=== PATIENT | female | born 1940 | race Caucasian/White ===

== ENCOUNTER 2021-03-02 19:23 | Inpatient (IN) | payer MEDICARE ==
[2021-03-02] MEDS ORDERED: Sodium Chloride 0.9% 10 ML Syringe FLUSH PRN (19:34)
[2021-03-02] MEDS ORDERED: Adenosine 6 MG/2 ML SDV IVPUSH ONE ×2 (19:36)
[2021-03-02] MEDS ORDERED: Diltiazem 25 MG/5 ML SDV IVPUSH ONE (19:38)
--- NOTE | 2021-03-02 19:41 | EDM.PDOC ---
ED HPI GENERAL MEDICAL PROBLEM - General Chief Complaint: Cardiovascular Problem Stated Complaint: IRREGULAR HEARTBEAT Time Seen by Provider: 03/02/21 19:31 Source of Information: Reports: Patient, Family, RN Notes Reviewed History Limitations: Reports: No Limitations - History of Present Illness INITIAL COMMENTS - FREE TEXT/NARRATIVE: 80-year-old female presents emergency department a complaint of palpitations, she states it started yesterday mainly in the night and then has progressed throughout the day has not resolved. She has not had this before. 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: Musculoskeletal History: Reports: Fracture - Infectious Disease History Infectious Disease History: Reports: Chicken Pox, Shingles - Past Surgical History HEENT Surgical History: Reports: Cataract Surgery Female Surgical History: Reports: Hysterectomy, Salpingo-Oophorectomy ED ROS GENERAL - Review of Systems Review Of Systems: See Below Constitutional: Reports: No Symptoms Respiratory: Reports: No Symptoms Cardiovascular: Reports: Palpitations GI/Abdominal: Reports: No Symptoms ED EXAM, GENERAL - Physical Exam Exam: See Below Exam Limited By: No Limitations General Appearance: Alert, WD/WN, No Apparent Distress Respiratory/Chest: No Respiratory Distress, Lungs Clear, Normal Breath Sounds, No Accessory Muscle Use, Chest Non-Tender Cardiovascular: Tachycardia GI/Abdominal: Soft, Non-Tender #1 Interpretation EKG Date: 03/02/21 Time: 19:42 Rhythm: A-Fib [place]: Normal P-Wave: Absent QRS: Normal ST-T: Normal QT: Normal Comparison: NA - No Prior EKG Course - Vital Signs Last Recorded V/S: Last Vital Signs Temp 97.4 F 03/02/21 20:08 Pulse 82 03/02/21 20:22 Resp 12 03/02/21 20:22 BP 118/67 03/02/21 20:22 Pulse Ox 96 03/02/21 20:22 - Orders/Labs/Meds Orders: Active Orders 24 hr Category Date Time Status Cardiac Monitoring [RC] .As Directed Care 03/02/21 19:34 Active EKG Documentation Completion [RC] ASDIRECTED Care 03/02/21 19:36 Active Peripheral IV Care [RC] . DIRECTED Care 03/02/21 19:36 Active Chest 1V Frontal [CR] Stat Exams 03/02/21 19:35 Taken Sodium Chloride 0.9% [Normal Saline] 1,000 ml Med 03/02/21 19:45 Active IV ASDIRECTED Sodium Chloride 0.9% [Saline Flush] Med 03/02/21 19:34 Active 10 ml FLUSH ASDIRECTED PRN ED Antiarrhythmia Med Reflex [OM.PC] Stat Oth 03/02/21 19:34 Ordered Peripheral IV Insertion Adult [OM.PC] Stat Oth 03/02/21 19:34 Ordered EKG 12 Lead [EK] Stat Ther 03/02/21 19:35 Ordered Medication Orders Sodium Chloride (Normal Saline) 1,000 mls @ 125 mls/hr IV ASDIRECTED LESLIE Last Admin: 03/02/21 19:58 Dose: 125 mls/hr Documented by: DIEGO Sodium Chloride (Sodium Chloride 0.9% 10 Ml Syringe) 10 ml FLUSH ASDIRECTED PRN PRN Reason: Keep Vein Open Last Admin: 03/02/21 19:59 Dose: 10 ml Documented by: DIEGO Labs: Laboratory Tests 03/02/21 03/02/21 Range/Units 19:45 19:45 WBC 5.5 (4.5-11.0) K/uL RBC 5.03 (3.30-5.50) M/uL Hgb 14.3 (12.0-15.0) g/dL Hct 44.8 (36.0-48.0) % MCV 89 (80-98) fL MCH 28 (27-31) pg MCHC 32 (32-36) % Plt Count 343 (150-400) K/uL Neut % (Auto) 64.1 (36-66) % Lymph % (Auto) 25.1 (24-44) % [place] % (Auto) 7.4 H (2-6) % Eos % (Auto) 1.8 L (2-4) % Baso % (Auto) 1.6 H (0-1) % Sodium 142 (140-148) mmol/L Potassium 3.2 L (3.6-5.2) mmol/L Chloride 102 (100-108) mmol/L Carbon Dioxide 26 (21-32) mmol/L Anion Gap 17.2 H (5.0-14.0) mmol/L BUN 30 H (7-18) mg/dL Creatinine 1.4 H (0.6-1.0) mg/dL Est Cr Clr Drug Dosing 26.95 mL/min Estimated GFR (MDRD) 36 L (>60) Glucose 122 H (74-106) mg/dL Calcium 9.1 (8.5-10.1) mg/dL Total Bilirubin 0.6 (0.2-1.0) mg/dL AST 26 (15-37) U/L ALT 39 (12-78) U/L Alkaline Phosphatase 89 (46-116) U/L Troponin I < 0.017 (0.000-0.056) ng/mL Total Protein 7.4 (6.4-8.2) g/dL Albumin 3.7 (3.4-5.0) g/dL Globulin 3.7 H (2.3-3.5) g/dL Albumin/Globulin Ratio 1.0 L (1.2-2.2) Meds: Medications Generic Name Dose Route Start Last Admin Trade Name Freq PRN Reason Stop Dose Admin Sodium Chloride 1,000 mls @ 125 mls/hr 03/02/21 19:45 03/02/21 19:58 Normal Saline IV 125 mls/hr ASDIRECTED LESLIE Administration Sodium Chloride 10 ml 03/02/21 19:34 03/02/21 19:59 Sodium Chloride 0.9% 10 Ml Syringe FLUSH 10 ml ASDIRECTED PRN Administration Keep Vein Open Discontinued Medications Generic Name Dose Route Start Last Admin Trade Name Freq PRN Reason Stop Dose Admin Adenosine 6 mg 03/02/21 19:36 Adenosine 6 Mg/2 Ml Sdv IVPUSH 03/02/21 19:37 NOW ONE Adenosine 12 mg 03/02/21 19:36 Adenosine 6 Mg/2 Ml Sdv IVPUSH 03/02/21 19:37 NOW ONE Cyclobenzaprine HCl 10 mg 03/02/21 19:46 Cyclobenzaprine 10 Mg Tab PO 03/02/21 19:47 ONETIME ONE Diltiazem HCl 20 mg 03/02/21 19:38 03/02/21 19:59 Diltiazem 25 Mg/5 Ml Sdv IVPUSH 03/02/21 19:39 20 mg ONETIME ONE Administration Ketorolac Tromethamine 30 mg 03/02/21 19:46 Ketorolac 30 Mg/Ml Sdv IVPUSH 03/02/21 19:47 ONETIME ONE Departure - Departure Time of Disposition: 21:13 Disposition: Refer to Observation Condition: Fair Clinical Impression: Atrial fibrillation with RVR Referrals: Mario Alberto Finley RIGHT OF WAY WORKER [Primary Care Provider] - Forms: ED Department Discharge Sepsis Event Note (ED) - Focused Exam Vital Signs: Vital Signs Temp Pulse Resp BP Pulse Ox 03/02/21 20:22 82 12 118/67 96 03/02/21 20:08 97.4 F 142 H 14 147/93 H 96 03/02/21 19:41 97.4 F 142 H 14 147/93 H 96 - My Orders Last 24 Hours: My Active Orders 03/02/21 19:34 Cardiac Monitoring [RC] .As Directed Sodium Chloride 0.9% [Saline Flush] 10 ml FLUSH ASDIRECTED PRN ED Antiarrhythmia Med Reflex [OM.PC] Stat Peripheral IV Insertion Adult [OM.PC] Stat 03/02/21 19:35 Chest 1V Frontal [CR] Stat EKG 12 Lead [EK] Stat 03/02/21 19:36 EKG Documentation Completion [RC] ASDIRECTED Peripheral IV Care [RC] . DIRECTED 03/02/21 19:45 Sodium Chloride 0.9% [Normal Saline] 1,000 ml IV ASDIRECTED - Assessment/Plan Last 24 Hours: My Active Orders 03/02/21 19:34 Cardiac Monitoring [RC] .As Directed Sodium Chloride 0.9% [Saline Flush] 10 ml FLUSH ASDIRECTED PRN ED Antiarrhythmia Med Reflex [OM.PC] Stat Peripheral IV Insertion Adult [OM.PC] Stat 03/02/21 19:35 Chest 1V Frontal [CR] Stat EKG 12 Lead [EK] Stat 03/02/21 19:36 EKG Documentation Completion [RC] ASDIRECTED Peripheral IV Care [RC] . DIRECTED 03/02/21 19:45 Sodium Chloride 0.9% [Normal Saline] 1,000 ml IV ASDIRECTED Plan: Assessment Acuity = acute Site and laterality = atrial fibrillation with RVR Etiology = unknown Manifestations = none Location of injury = Home Lab values = CBC unremarkable potassium low at 2.2 consistent hypokalemia creatinine elevated 1.4 consistent chronic renal failure stage G3 B troponin was negative initial EKG demonstrates atrial fibrillation there is no ST elevations or depressions after Cardizem bolus the rate did slow down to 80 but remained in atrial fibrillation Plan Call discussed case hospitalist on-call at 2100 kindly agreed to come and evaluate patient emergency department for admission This note was dictated using [employer] voice recognition software please call with any questions on syntax or grammar.
[2021-03-02] MEDS ORDERED: Cyclobenzaprine 10 MG Tab PO ONE (19:46)
[2021-03-02] MEDS ORDERED: Ketorolac 30 MG/ML SDV IVPUSH ONE (19:46)
[2021-03-02] MEDS: Sodium Chloride 0.9% 1,000 ML IV SCH (19:58)
[2021-03-02 21:49] VITALS: PULSE 110
--- NOTE | 2021-03-02 22:08 | PCM.HP.2 ---
H&P History of Present Illness - General Date of Service: 03/02/21 Admit Problem/Dx: Admission Diagnosis/Problem Admission Diagnosis/Problem Atrial fibrillation with rapid ventricular response Source of Information: Patient, Family (Daughter Zeinab), Provider History Limitations: Reports: No Limitations - History of Present Illness Initial Comments - Free Text/Narative: chief complaint- heart palpations This is a 80 year old female presents to ER for evaluation of irregular heart rate. She reports woke up last night at about 3 or 4 am with irregular heart rate. The palpations continue throughout the day. denies any chest pain or shortness of breath or weakness. denies headache. reports the sniffles yesterday, no fever, no chills, no nausea, vomiting or diarrhea. reports painful urination Symptom Onset Date: 03/01/21 Symptom Onset Time: 03:00 Duration of Symptoms: Reports: Hour(s):, Waxing/Waning Location: Reports: Chest Quality: Reports: Other (irregular heart beat) Improves with: Reports: None Worsens with: Reports: None Associated Symptoms: Reports: No Other Symptoms - Related Data Allergies/Adverse Reactions: Allergies Allergy/AdvReac Type Severity Reaction Status Date / Time No Known Allergies Allergy Verified 03/02/21 19:44 Home Medications: Home Meds Metoprolol Succinate [Toprol XL 100mg] 100 mg PO DAILY 09/12/15 [History] Simvastatin [Zocor] 10 mg PO BEDTIME 09/12/15 [History] Chlorthalidone 12.5 mg PO DAILY 03/02/21 [History] Past Medical History HEENT History: Reports: Cataract, Impaired Vision, Other (See Below) Other HEENT History: upper dentures Cardiovascular History: Reports: Arrhythmia, Hypertension Respiratory History: Reports: Sleep Apnea 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 has 3 children. 1 Son , 1 Daughter, 1 Daughter age 6 months.) H&P Review of Systems - Review of Systems: Review Of Systems: See Below General: Reports: Other (neat and well groomed female, pleasant, no concerns at this time.) HEENT: Reports: Glasses Pulmonary: Reports: No Symptoms Cardiovascular: Reports: Palpitations Gastrointestinal: Reports: No Symptoms Genitourinary: Reports: Dysuria (for the past few days. ) Musculoskeletal: Reports: No Symptoms Skin: Reports: No Symptoms Psychiatric: Reports: No Symptoms Neurological: Reports: No Symptoms Hematologic/Lymphatic: Reports: No Symptoms Immunologic: Reports: No Symptoms Exam - Exam Exam: See Below - Vital Signs Vital Signs: Last Vital Signs Temp 97.4 F 03/02/21 20:08 Pulse 110 H 03/02/21 21:48 Resp 8 L 03/02/21 21:48 BP 134/72 03/02/21 21:48 Pulse Ox 96 03/02/21 21:48 Weight: 154 lb 8.705 oz - Exam Quality Assessment: DVT Prophylaxis General: Alert, Oriented, Cooperative, Other (neat and well groomed, pleasant) HEENT: PERRLA, Hearing Intact, Mucosa Moist & Clara, Nares Patent, Normal Nasal Septum, Posterior Pharynx Clear, Conjunctiva Clear, EOMI, EACs Clear, TMs Clear Neck: Supple, Trachea Midline, 2 Lungs: Clear to Auscultation, Normal Respiratory Effort Cardiovascular: Regular Rate, Regular Rhythm GI/Abdominal Exam: Normal Bowel Sounds, Soft, Non-Tender, No Distention, No Abnormal Bruit, No Mass (Female) Exam: Deferred Rectal (Female) Exam: Deferred Back Exam: Normal Inspection, Full Range of Motion, NT Extremities: Normal Inspection, Normal Range of Motion, Non-Tender, No Pedal Edema, Normal Capillary Refill Peripheral Pulses: 2+: Radial (L), Radial (R) Skin: Warm, Dry, Intact Neurological: Cranial Nerves Intact, Reflexes Equal Bilateral, Strength Equal Bilateral, Normal Gait, Normal Speech, Normal Tone Neuro Extensive - Mental Status: Alert, Oriented x3, Normal Mood/Affect, Normal Cognition Neuro Extensive - Motor, Sensory, Reflexes: CN II-XII Intact, Normal Reflexes Psychiatric: Alert, Normal Affect, Normal Mood - Patient Data Lab Results Last 24 hrs: Laboratory Results - last 24 hr 03/02/21 03/02/21 Range/Units 19:45 19:45 WBC 5.5 (4.5-11.0) K/uL RBC 5.03 (3.30-5.50) M/uL Hgb 14.3 (12.0-15.0) g/dL Hct 44.8 (36.0-48.0) % MCV 89 (80-98) fL MCH 28 (27-31) pg MCHC 32 (32-36) % Plt Count 343 (150-400) K/uL Neut % (Auto) 64.1 (36-66) % Lymph % (Auto) 25.1 (24-44) % [place] % (Auto) 7.4 H (2-6) % Eos % (Auto) 1.8 L (2-4) % Baso % (Auto) 1.6 H (0-1) % Sodium 142 (140-148) mmol/L Potassium 3.2 L (3.6-5.2) mmol/L Chloride 102 (100-108) mmol/L Carbon Dioxide 26 (21-32) mmol/L Anion Gap 17.2 H (5.0-14.0) mmol/L BUN 30 H (7-18) mg/dL Creatinine 1.4 H (0.6-1.0) mg/dL Est Cr Clr Drug Dosing 26.95 mL/min Estimated GFR (MDRD) 36 L (>60) Glucose 122 H (74-106) mg/dL Calcium 9.1 (8.5-10.1) mg/dL Total Bilirubin 0.6 (0.2-1.0) mg/dL AST 26 (15-37) U/L ALT 39 (12-78) U/L Alkaline Phosphatase 89 (46-116) U/L Troponin I < 0.017 (0.000-0.056) ng/mL Total Protein 7.4 (6.4-8.2) g/dL Albumin 3.7 (3.4-5.0) g/dL Globulin 3.7 H (2.3-3.5) g/dL Albumin/Globulin Ratio 1.0 L (1.2-2.2) Result Diagrams: 03/02/21 19:45 03/02/21 19:45 Sepsis Event Note - Evaluation Sepsis Screening Result: No Definite Risk - Focused Exam Vital Signs: Vital Signs Temp Pulse Resp BP Pulse Ox 03/02/21 21:48 110 H 8 L 134/72 96 03/02/21 20:22 82 12 118/67 96 03/02/21 20:08 97.4 F 142 H 14 147/93 H 96 03/02/21 19:41 97.4 F 142 H 14 147/93 H 96 - Problem List (1) Atrial fibrillation with RVR SNOMED Code(s): 104193714347405 ICD Code: I48.91 - UNSPECIFIED ATRIAL FIBRILLATION Status: Acute Priority: High Current Visit: Yes (2) Hypertension SNOMED Code(s): 67527523 ICD Code: I10 - ESSENTIAL (PRIMARY) HYPERTENSION Status: Acute Priority: High Current Visit: Yes Qualifiers: Hypertension type: essential hypertension Qualified Code(s): I10 - Essential (primary) hypertension (3) Dysuria SNOMED Code(s): 66245716 ICD Code: R30.0 - DYSURIA Status: Acute Priority: Low Current Visit: Yes (4) Low back pain SNOMED Code(s): 080991726 ICD Code: M54.5 - LOW BACK PAIN Status: Acute Priority: Low Current Visit: No Qualifiers: Back pain laterality: right Sciatica presence: without sciatica Problem List Initiated/Reviewed/Updated: Yes Orders Last 24hrs: Active Orders 24 hr Category Date Time Status Patient Status Manage Transfer [TRANSFER] Routine ADT 03/02/21 21:38 Active Cardiac Monitoring [RC] .As Directed Care 03/02/21 19:34 Active EKG Documentation Completion [RC] ASDIRECTED Care 03/02/21 19:36 Active Peripheral IV Care [RC] . DIRECTED Care 03/02/21 19:36 Active Chest 1V Frontal [CR] Stat Exams 03/02/21 19:35 Taken Sodium Chloride 0.9% [Normal Saline] 1,000 ml Med 03/02/21 19:45 Active IV ASDIRECTED Sodium Chloride 0.9% [Saline Flush] Med 03/02/21 19:34 Active 10 ml FLUSH ASDIRECTED PRN ED Antiarrhythmia Med Reflex [OM.PC] Stat Oth 03/02/21 19:34 Ordered Peripheral IV Insertion Adult [OM.PC] Stat Oth 03/02/21 19:34 Ordered Resuscitation Status Routine Resus Stat 03/02/21 21:41 Ordered EKG 12 Lead [EK] Stat Ther 03/02/21 19:35 Ordered Medication Orders Sodium Chloride (Normal Saline) 1,000 mls @ 125 mls/hr IV ASDIRECTED LESLIE Last Admin: 03/02/21 19:58 Dose: 125 mls/hr Documented by: DIEGO Sodium Chloride (Sodium Chloride 0.9% 10 Ml Syringe) 10 ml FLUSH ASDIRECTED PRN PRN Reason: Keep Vein Open Last Admin: 03/02/21 19:59 Dose: 10 ml Documented by: DIEGO Assessment/Plan Comment:: Assessment/Plan Comment:: Atrial Fib with RVR ASSESSMENT AND PLAN Atrial Fib with RVR- this is a 80 year old lady present to the ER for evaluation of palpations. was found to be in Afib with RVR , rate of 180's, given Adenosine 6 mg at 1936 then Adenosine 12 mg at 1937, then Diltiazem 20 mg IVP, heart rate decreased 80's. Labs cbc normal, chemistries Na+ 142, Potassium 3.2, cl 102, bun 30, creatine 1.4 GFR 36 , urine pending, trop 0.017. Ms. Waller declines any cardioversion because she is scared and not sure does not like procedures or extra medications if not necessary. will plan to admit observation status for overnight monitoring. -Lovenox 30 mg Subcut daily- give first dose tonight -Diltiazem 30 mg every 6 hours -telemetry -oxygen to keep >92% -labs in am CBC, BMP Hypertension -continue outpatient medication -Metoprolol 100 mg XL daily -Zocor 10 mg at bedtime Low back pain -medication ordered as needed Dysuria -urine sample pending MAINTENANCE ISSUES -DVT prophylaxis- Lovenox 30 mg subcut now and in am -GI prophylaxis- Protonix 40 mg daily -Mcginnis catheter; not indicated -Nutrition; consistent regular diet -Nicotine dependence -not required CODE STATUS-FULL CODE ADMISSION STATUS-this patient will be admitted to observation status, expect no more than a one night hospital stay for evaluation and management of problems as outlined above. DISPOSITION-anticipate discharge to home after the hospital stay. PRIMARY CARE PROVIDER-Dr. Damico and CORRINA See HOSPITALIST Dr. Steele - Mortality Measure Prognosis:: Good - Mortality Measure Prognosis:: Good
[2021-03-02] MEDS ORDERED: Ondansetron 4 MG/2 ML SDV IV PRN (22:31)
[2021-03-02] MEDS ORDERED: Acetaminophen 325 MG Tab PO PRN (22:31)
[2021-03-02] MEDS ORDERED: Albuterol 0.083% 2.5 MG/3 ML Neb Soln NEB PRN (22:31)
[2021-03-02] MEDS ORDERED: Pravastatin 20 MG Tab PO SCH (22:31)
[2021-03-02] MEDS ORDERED: Docusate Sodium 100 MG Cap PO PRN (22:31)
[2021-03-02] MEDS ORDERED: Enoxaparin 30 MG/0.3 ML Syringe SUBCUT SCH (22:31)
[2021-03-02] MEDS ORDERED: oxyCODONE 5 MG Tab PO PRN (22:31)
[2021-03-02] MEDS ORDERED: Ondansetron 4 MG Tab.DIS PO PRN (22:31)
[2021-03-02] MEDS ORDERED: Sodium Chloride 0.9% 1,000 ML IV SCH (22:31)
[2021-03-02] MEDS ORDERED: Bisacodyl 5 MG Tab PO PRN (22:31)
[2021-03-02] MEDS ORDERED: Morphine 2 MG/ML SYRINGE IVPUSH PRN (22:31)
[2021-03-03] MEDS ORDERED: Melatonin 3 MG Tab PO PRN ×2 (01:47→08:00)
[2021-03-03] MEDS: Diltiazem IR 30 MG Tab PO SCH ×2 (02:07→07:55)
[2021-03-03] MEDS: Sodium Chloride 0.9% 1,000 ML IV SCH (03:25)
[2021-03-03 08:07] VITALS: BP 116/67
[2021-03-03] MEDS ORDERED: Potassium Chloride 20 MEQ Tab.ER PO ONE (08:30)
[2021-03-03] MEDS ORDERED: Metoprolol Succinate 50 MG Tab.ER PO SCH (09:00)
[2021-03-03] MEDS ORDERED: Chlorthalidone 25 MG Tab PO SCH (09:00)
--- NOTE | 2021-03-03 10:13 | PCM.DCSUM1 ---
Discharge Summary - Hospital Course Brief History: 80-year-old female with history of paroxysmal atrial fibrillation and essential hypertension who presented with palpitations and weakness. She was admitted for management of atrial fibrillation with a rapid ventricular response. Diagnosis: Stroke: No - Discharge Data Discharge Date: 03/03/21 Discharge Disposition: Home, Self-Care 01 Condition: Good - Referral to Home Health Primary Care Physician: Mario Alberto Finley NP - Discharge Diagnosis/Problem(s) (1) Atrial fibrillation with RVR SNOMED Code(s): 679305089557002 ICD Code: I48.91 - UNSPECIFIED ATRIAL FIBRILLATION Status: Acute Priority: High Current Visit: Yes (2) Hypokalemia due to excessive renal loss of potassium SNOMED Code(s): 27155286 ICD Code: E87.6 - HYPOKALEMIA Status: Acute Current Visit: Yes (3) CKD (chronic kidney disease) stage 3, GFR 30-59 ml/min SNOMED Code(s): 300198325 ICD Code: N18.30 - CHRONIC KIDNEY DISEASE, STAGE 3 UNSPECIFIED Status: Chronic Current Visit: No Qualifiers: Chronic kidney disease stage 3 subtype: stage 3a (GFR 45-59) Qualified Code(s): N18.31 - Chronic kidney disease, stage 3a (4) Essential hypertension SNOMED Code(s): 21599011 ICD Code: I10 - ESSENTIAL (PRIMARY) HYPERTENSION Status: Chronic Current Visit: No - Patient Summary/Data Hospital Course: Maryellen presented to the emergency room with palpitations and weakness. Work-up in the emergency room revealed atrial fibrillation with rapid ventricular response. Initial heart rates were in the 130-140 range. She received a 15 mg bolus of IV diltiazem and her heart rate slowed down to the 80s but she remained in atrial fibrillation. Laboratory studies were remarkable for a creatinine of 1.4 as well as a potassium of 3.1. There is no evidence for infection on urinalysis. Chest x-ray did not suggest infection. The patient was admitted to the hospital for management of paroxysmal atrial fibrillation. She received oral diltiazem overnight and fortunately she converted to a sinus rhythm. She did receive some IV fluids overnight and her creatinine has improved to 1.1. She has remained in sinus rhythm following conversion earlier this morning. She is feeling much better with some fluids as well as conversion to sinus rhythm. I suspect that her chlorthalidone led to dehydration with a mild elevation in her creatinine as well as the hypokalemia. She reports some orthostatic type symptoms that have been present for some time and I am concerned these could be related to the chlorthalidone. Our plan is to stop the chlorthalidone. We will be starting a low-dose of diltiazem in its place to help with blood pressure control as well as the now resolved atrial fibrillation. We did discuss anticoagulation but given the very short episode at this point we can hold off on any systemic anticoagulation. If she has additional episodes we may need to consider this. She feels well enough to go home at this point and is stable and safe for discharge. She will be following up with her primary care in 1 to 2 weeks for blood pressure recheck. - Patient Instructions Diet: Regular Diet as Tolerated Activity: As Tolerated Showering/Bathing: May Shower Other/Special Instructions: You were in the hospital for observation and management of atrial fibrillation with rapid ventricular response. Your heart rhythm is now back to a normal sinus rhythm after using oral diltiazem overnight. I suspect that the episode of atrial fibrillation was caused by low potassium. I believe if you had become mildly dehydrated because of the chlorthalidone. I suspect that the low potassium was also a result of the chlorthalidone. I recommend that you STOP taking the chlorthalidone. To help with blood pressure and also your heart rhythm I recommend you start diltiazem 120 [address] daily [address] of the chlorthalidone. You should follow-up with your primary care provider to recheck your blood pressure in 1 to 2 weeks. Please seek medical attention if you develop significant palpitations, weakness that impairs your ability to perform your activities of daily living, if you have chest pain/pressure or significant shortness of breath. - Discharge Plan *PRESCRIPTION DRUG MONITORING PROGRAM REVIEWED*: Not Applicable *COPY OF PRESCRIPTION DRUG MONITORING REPORT IN PATIENT NARA: Not Applicable Prescriptions/Med Rec: dilTIAZem HCL [Diltiazem 24Hr ER] 120 mg PO DAILY #90 cap.sa.24h Home Medications: Home Meds Metoprolol Succinate [Toprol XL 100mg] 100 mg PO DAILY 09/12/15 [History] Simvastatin [Zocor] 10 mg PO BEDTIME 09/12/15 [History] dilTIAZem HCL [Diltiazem 24Hr ER] 120 mg PO DAILY #90 cap.sa.24h 03/03/21 [Rx] Oxygen Therapy Mode: Room Air Patient Handouts: Atrial Fibrillation, Diltiazem Extended-Release Oral Capsules or Tablets Referrals: Mario Alberto Finley NP [Primary Care Provider] - (1-2 weeks -follow-up hospital stay for atrial fibrillation and recheck blood pressure) - Discharge Summary/Plan Comment DC Time >30 min.: No - Patient Data Vitals - Most Recent: Last Vital Signs Temp 36.2 C 03/03/21 08:00 Pulse 110 H 03/02/21 21:48 Resp 15 03/03/21 08:00 BP 116/67 03/03/21 08:00 Pulse Ox 94 L 03/03/21 08:00 Weight - Most Recent: 70.806 kg Lab Results - Last 24 hrs: Laboratory Results - last 24 hr 03/02/21 03/02/21 03/02/21 Range/Units 19:45 19:45 22:31 WBC 5.5 (4.5-11.0) K/uL RBC 5.03 (3.30-5.50) M/uL Hgb 14.3 (12.0-15.0) g/dL Hct 44.8 (36.0-48.0) % MCV 89 (80-98) fL MCH 28 (27-31) pg MCHC 32 (32-36) % Plt Count 343 (150-400) K/uL Neut % (Auto) 64.1 (36-66) % Lymph % (Auto) 25.1 (24-44) % [place] % (Auto) 7.4 H (2-6) % Eos % (Auto) 1.8 L (2-4) % Baso % (Auto) 1.6 H (0-1) % Sodium 142 (140-148) mmol/L Potassium 3.2 L (3.6-5.2) mmol/L Chloride 102 (100-108) mmol/L Carbon Dioxide 26 (21-32) mmol/L Anion Gap 17.2 H (5.0-14.0) mmol/L BUN 30 H (7-18) mg/dL Creatinine 1.4 H (0.6-1.0) mg/dL Est Cr Clr Drug Dosing 26.95 mL/min Estimated GFR (MDRD) 36 L (>60) Glucose 122 H (74-106) mg/dL Calcium 9.1 (8.5-10.1) mg/dL Total Bilirubin 0.6 (0.2-1.0) mg/dL AST 26 (15-37) U/L ALT 39 (12-78) U/L Alkaline Phosphatase 89 (46-116) U/L Troponin I < 0.017 (0.000-0.056) ng/mL Total Protein 7.4 (6.4-8.2) g/dL Albumin 3.7 (3.4-5.0) g/dL Globulin 3.7 H (2.3-3.5) g/dL Albumin/Globulin Ratio 1.0 L (1.2-2.2) Urine Color Yellow (YELLOW) Urine Appearance Clear (CLEAR) Urine pH 5.0 (5.0-8.0) Ur Specific [place] 1.010 (1.008-1.030) Urine Protein Negative (NEGATIVE) mg/dL Urine Glucose (UA) Negative (NEGATIVE) mg/dL Urine Ketones Negative (NEGATIVE) mg/dL Urine Occult Blood Small H (NEGATIVE) Urine Nitrite Negative (NEGATIVE) Urine Bilirubin Negative (NEGATIVE) Urine Urobilinogen 0.2 (0.2-1.0) EU/dL Ur Leukocyte Esterase Moderate H (NEGATIVE) Urine RBC 0-5 (0-5) Urine WBC 5-10 H (0-5) Ur Epithelial Cells Rare Amorphous Sediment Few Urine Bacteria Few Urine Mucus Not seen 03/03/21 03/03/21 03/03/21 Range/Units 05:30 05:30 05:30 WBC 5.6 (4.5-11.0) K/uL RBC 4.74 (3.30-5.50) M/uL Hgb 13.6 (12.0-15.0) g/dL Hct 42.6 (36.0-48.0) % MCV 90 (80-98) fL MCH 29 (27-31) pg MCHC 32 (32-36) % Plt Count 286 (150-400) K/uL Neut % (Auto) 68.4 H (36-66) % Lymph % (Auto) 20.2 L (24-44) % [place] % (Auto) 7.5 H (2-6) % Eos % (Auto) 2.5 (2-4) % Baso % (Auto) 1.4 H (0-1) % Sodium 146 (140-148) mmol/L Potassium 3.3 L (3.6-5.2) mmol/L Chloride 108 (100-108) mmol/L Carbon Dioxide 26 (21-32) mmol/L Anion Gap 15.3 H (5.0-14.0) mmol/L BUN 22 H (7-18) mg/dL Creatinine 1.1 H (0.6-1.0) mg/dL Est Cr Clr Drug Dosing 34.30 mL/min Estimated GFR (MDRD) 48 L (>60) Glucose 114 H (74-106) mg/dL Calcium 8.6 (8.5-10.1) mg/dL Total Bilirubin (0.2-1.0) mg/dL AST (15-37) U/L ALT (12-78) U/L Alkaline Phosphatase (46-116) U/L Troponin I < 0.017 (0.000-0.056) ng/mL Total Protein (6.4-8.2) g/dL Albumin (3.4-5.0) g/dL Globulin (2.3-3.5) g/dL Albumin/Globulin Ratio (1.2-2.2) Urine Color (YELLOW) Urine Appearance (CLEAR) Urine pH (5.0-8.0) Ur Specific [place] (1.008-1.030) Urine Protein (NEGATIVE) mg/dL Urine Glucose (UA) (NEGATIVE) mg/dL Urine Ketones (NEGATIVE) mg/dL Urine Occult Blood (NEGATIVE) Urine Nitrite (NEGATIVE) Urine Bilirubin (NEGATIVE) Urine Urobilinogen (0.2-1.0) EU/dL Ur Leukocyte Esterase (NEGATIVE) Urine RBC (0-5) Urine WBC (0-5) Ur Epithelial Cells Amorphous Sediment Urine Bacteria Urine Mucus Med Orders - Current: Current Medications Acetaminophen (Acetaminophen 325 Mg Tab) 650 mg PO Q4H PRN PRN Reason: Pain (Mild 1-3)/fever Last Admin: 03/03/21 04:28 Dose: 650 mg Documented by: Albuterol (Albuterol 0.083% 2.5 Mg/3 Ml Neb Soln) 2.5 mg NEB Q4H PRN PRN Reason: Shortness Of Breath/wheezing Bisacodyl (Bisacodyl 5 Mg Tab) 5 mg PO DAILY PRN PRN Reason: Constipation Chlorthalidone (Chlorthalidone 25 Mg Tab) 12.5 mg PO DAILY [facility] Diltiazem HCl (Diltiazem Ir 30 Mg Tab) 30 mg PO Q6H [facility] Last Admin: 03/03/21 07:55 Dose: 30 mg Documented by: Docusate Sodium (Docusate Sodium 100 Mg Cap) 100 mg PO BID PRN PRN Reason: Constipation Enoxaparin Sodium (Enoxaparin 30 Mg/0.3 Ml Syringe) 30 mg SUBCUT BEDTIME [facility] Melatonin (Melatonin 3 Mg Tab) 3 mg PO BEDTIME PRN PRN Reason: Sleep Metoprolol Succinate (Metoprolol Succinate 50 Mg Tab.Er) 100 mg PO DAILY [facility] Morphine Sulfate (Morphine 2 Mg/Ml Syringe) 2 mg IVPUSH Q2H PRN PRN Reason: Pain (severe 7-10) Ondansetron HCl (Ondansetron 4 Mg Tab.Dis) 4 mg PO Q6H PRN PRN Reason: Nausea able to take PO Ondansetron HCl (Ondansetron 4 Mg/2 Ml Sdv) 4 mg IV Q4H PRN PRN Reason: Nausea/Vomiting Oxycodone HCl (Oxycodone 5 Mg Tab) 5 mg PO Q4H PRN PRN Reason: Pain (moderate 4-6) Pantoprazole Sodium (Pantoprazole 40 Mg Tab.Cr) 40 mg PO BEDTIME [facility] Pravastatin Sodium (Pravastatin 20 Mg Tab) 10 mg PO BEDTIME [facility] Last Admin: 03/03/21 02:07 Dose: Not Given Documented by: Sodium Chloride (Sodium Chloride 0.9% 10 Ml Syringe) 10 ml FLUSH ASDIRECTED PRN PRN Reason: Keep Vein Open Last Admin: 03/02/21 19:59 Dose: 10 ml Documented by: Discontinued Medications Adenosine (Adenosine 6 Mg/2 Ml Sdv) 6 mg IVPUSH NOW ONE Stop: 03/02/21 19:37 Last Admin: 03/02/21 22:33 Dose: Not Given Documented by: Adenosine (Adenosine 6 Mg/2 Ml Sdv) 12 mg IVPUSH NOW ONE Stop: 03/02/21 19:37 Last Admin: 03/02/21 22:33 Dose: Not Given Documented by: Cyclobenzaprine HCl (Cyclobenzaprine 10 Mg Tab) 10 mg PO ONETIME ONE Stop: 03/02/21 19:47 Diltiazem HCl (Diltiazem 25 Mg/5 Ml Sdv) 20 mg IVPUSH ONETIME ONE Stop: 03/02/21 19:39 Last Admin: 03/02/21 19:59 Dose: 20 mg Documented by: Enoxaparin Sodium (Enoxaparin 30 Mg/0.3 Ml Syringe) 30 mg SUBCUT DAILY [facility] Last Admin: 03/03/21 02:07 Dose: 30 mg Documented by: Sodium Chloride (Normal Saline) 1,000 mls @ 125 mls/hr IV ASDIRECTED [facility] Last Admin: 03/03/21 03:25 Dose: 125 mls/hr Documented by: Sodium Chloride (Normal Saline) 1,000 mls @ 125 mls/hr IV ASDIRECTED [facility] Ketorolac Tromethamine (Ketorolac 30 Mg/Ml Sdv) 30 mg IVPUSH ONETIME ONE Stop: 03/02/21 19:47 Melatonin (Melatonin 3 Mg Tab) 3 mg PO BEDTIME [facility] Melatonin (Melatonin 3 Mg Tab) 3 mg PO DAILY PRN PRN Reason: Sleep Potassium Chloride (Potassium Chloride 20 Meq Tab.Er) 40 meq PO ONETIME ONE Stop: 03/03/21 08:31 Last Admin: 03/03/21 08:44 Dose: 40 meq Documented by:
--- NOTE | 2021-03-03 13:02 | CR ---
CHEST: Portable 03/02/2021 at 8:28 PM CLINICAL HISTORY:Chest pain COMPARISON:CT January 2021 FINDINGS: Heart and pulmonary vascularity are normal. There are atherosclerotic changes in the aorta. There is slight pleural plaque in the left chest. 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
[2021-03-03] MEDS ORDERED: Pantoprazole 40 MG Tab.CR PO SCH (21:00)
[2021-03-03] MEDS ORDERED: Melatonin 3 MG Tab PO SCH (21:00)
[2021-03-03] MEDS ORDERED: Enoxaparin 30 MG/0.3 ML Syringe SUBCUT SCH (21:00)
== END 2021-03-03 11:19 | disposition home or self-care (01) | DRG 310 ==
LOC: JP.ED 19:23 → JP.ICU 21:38
PROVIDERS: ADMIT Internal Medicine; ATTEND Internal Medicine
DX: I48.91 Unspecified atrial fibrillation (principal); I48.0 Paroxysmal atrial fibrillation; I10 Essential (primary) hypertension; E87.6 Hypokalemia; I12.9 Hypertensive chronic kidney disease with stage 1 through stage 4 chronic kidney disease, or unspecified chronic kidney disease; N18.31 Chronic kidney disease, stage 3a; E86.0 Dehydration; H54.7 Unspecified visual loss; M54.5 Low back pain; R30.0 Dysuria; G47.30 Sleep apnea, unspecified; Z98.49 Cataract extraction status, unspecified eye; Z79.899 Other long term (current) drug therapy; Z90.710 Acquired absence of both cervix and uterus
CPT/HCPCS: 36415; 71045 ×2; 80053; 84484; 85025; 93005; J3490; J7030; 80048; 81001; 87086; 96374; 99285-25; A9270-GY; J1650

== ENCOUNTER 2021-03-29 18:26 | Emergency (ER) | payer MEDICARE ==
--- NOTE | 2021-03-29 19:15 | EDM.PDOC ---
ED HPI GENERAL MEDICAL PROBLEM - General Chief Complaint: Cardiovascular Problem Stated Complaint: AFIB, HEART FLUTTERING Time Seen by Provider: 03/29/21 18:57 Source of Information: Reports: Patient History Limitations: Reports: No Limitations - History of Present Illness INITIAL COMMENTS - FREE TEXT/NARRATIVE: Maryellen is a 80-year-old female presenting to the ED for paroxysmal atrial fibrillation/flutter and elevated blood pressure evaluation. The patient was recently hospitalized at the beginning of the month in the ICU for acute onset of atrial flutter and congestive heart failure. She was aggressively diuresed and started on diltiazem and metoprolol. She developed some hypokalemia due to the diuretic. As a result, she stopped taking the diuretic and has had increa sing blood pressure and peripheral edema since discharge. She did see her primary doctor Dr. Damico for her hospitalization follow-up who wanted to double her diltiazem, however, the patient has not done this and now her blood pressures have been running in the 170s to 180s over the 70s to 90s. The patient has noticed increased peripheral edema with swelling of both legs. She does not measure her weight daily so is unaware of any weight gain, however, her girth has increased according to her son-in-law. The patient appears to be somewhat resistant to medication management which is likely resulting in her going in and out of atrial flutter and certainly contributing to congestive heart failure with peripheral edema. She denies any shortness of breath or chest pain. He has had a normal appetite. She denies any nausea, vomiting, or diarrhea. There is been no abdominal or back pain. She denies any urinary symptoms. - Related Data Allergies Allergy/AdvReac Type Severity Reaction Status Date / Time No Known Allergies Allergy Verified 03/02/21 19:44 Home Meds: Home Meds Metoprolol Succinate [Toprol XL 100mg] 100 mg PO DAILY 09/12/15 [History] Simvastatin [Zocor] 10 mg PO BEDTIME 09/12/15 [History] dilTIAZem HCL [Diltiazem 24Hr ER] 120 mg PO DAILY #90 cap.sa.24h 03/03/21 [Rx] Furosemide [Lasix] 20 mg PO QAM #30 tab 03/29/21 [Rx] Metoprolol Tartrate 100 mg PO BID #60 tablet 03/29/21 [Rx] Past Medical History HEENT History: Reports: Cataract, Impaired Vision, Other (See Below) Other HEENT History: upper dentures Cardiovascular History: Reports: Arrhythmia, Hypertension Respiratory History: Reports: Sleep Apnea 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 has 3 children. 1 Son , 1 Daughter, 1 Daughter age 6 months.) ED ROS GENERAL - Review of Systems Review Of Systems: See Below Constitutional: Reports: No Symptoms HEENT: Reports: No Symptoms Respiratory: Reports: No Symptoms Cardiovascular: Reports: Blood Pressure Problem, Edema, Palpitations Endocrine: Reports: No Symptoms GI/Abdominal: Reports: No Symptoms : Reports: No Symptoms Musculoskeletal: Reports: No Symptoms Skin: Reports: No Symptoms Neurological: Reports: No Symptoms Psychiatric: Reports: No Symptoms Hematologic/Lymphatic: Reports: No Symptoms Immunologic: Reports: No Symptoms ED EXAM, GENERAL - Physical Exam Exam: See Below Exam Limited By: No Limitations General Appearance: Alert, No Apparent Distress Eye Exam: Bilateral Eye: EOMI, PERRL Throat/Mouth: Normal Inspection, Normal Oropharynx, Normal Voice, No Airway Compromise Head: Atraumatic, Normocephalic Neck: Normal Inspection, Supple, Non-Tender, Full Range of Motion Respiratory/Chest: No Respiratory Distress, Lungs Clear, Normal Breath Sounds. No: Rales, Rhonchi, Wheezing Cardiovascular: Normal Peripheral Pulses, Regular Rate, Rhythm, No Murmur Peripheral Pulses: 2+: Radial (L), Radial (R), Posterior Tibial (L), Posterior Tibial (R) GI/Abdominal: Normal Bowel Sounds, Soft, Non-Tender Back Exam: Normal Inspection Extremities: Normal Range of Motion, Normal Capillary Refill, Pedal Edema (Bilateral 1+ edema lower calfs and ankles.) Neurological: Alert, Oriented, Normal Cognition, No Motor/Sensory Deficits Psychiatric: Normal Affect, Normal Mood Skin Exam: Warm, Dry, Intact, Normal Color Lymphatic: No Adenopathy #1 Interpretation EKG Date: 03/29/21 Time: 19:04 Rhythm: NSR Rate (Beats/Min): 77 [place]: Normal P-Wave: Present QRS: Normal (Nonspecific intraventricular conduction delay.) ST-T: Normal QT: Normal Comparison: No Change (No change in EKG when compared to previous on 03/02/2021) Course - Vital Signs Last Recorded V/S: Last Vital Signs Temp 36.4 C 03/29/21 19:04 Pulse 73 03/29/21 21:10 Resp 13 03/29/21 21:27 BP 187/93 H 03/29/21 21:27 Pulse Ox 95 03/29/21 21:27 - Orders/Labs/Meds Orders: Active Orders 24 hr Category Date Time Status EKG Documentation Completion [RC] ASDIRECTED Care 03/29/21 18:58 Active Chest 1V Frontal [CR] Stat Exams 03/29/21 18:58 Taken EKG 12 Lead [EK] Routine Ther 03/29/21 18:58 Ordered Labs: Laboratory Tests 03/29/21 03/29/21 03/29/21 Range/Units 19:15 19:23 19:23 WBC 5.2 (4.5-11.0) K/uL RBC 4.65 (3.30-5.50) M/uL Hgb 13.5 (12.0-15.0) g/dL Hct 42.5 (36.0-48.0) % MCV 91 (80-98) fL MCH 29 (27-31) pg MCHC 32 (32-36) % Plt Count 274 (150-400) K/uL Neut % (Auto) 64.3 (36-66) % Lymph % (Auto) 24.5 (24-44) % [place] % (Auto) 6.3 H (2-6) % Eos % (Auto) 3.8 (2-4) % Baso % (Auto) 1.1 H (0-1) % PT 10.3 (9.5-12.0) sec INR 0.94 (0.80-1.20) APTT 24.2 L (27.0-36.0) sec Sodium (140-148) mmol/L Potassium (3.6-5.2) mmol/L Chloride (100-108) mmol/L Carbon Dioxide (21-32) mmol/L Anion Gap (5.0-14.0) mmol/L BUN (7-18) mg/dL Creatinine (0.6-1.0) mg/dL Est Cr Clr Drug Dosing mL/min Estimated GFR (MDRD) (>60) Glucose (74-106) mg/dL Calcium (8.5-10.1) mg/dL Total Bilirubin (0.2-1.0) mg/dL AST (15-37) U/L ALT (12-78) U/L Alkaline Phosphatase (46-116) U/L NT-Pro-B Natriuret Pep (5-450) pg/mL Total Protein (6.4-8.2) g/dL Albumin (3.4-5.0) g/dL Globulin (2.3-3.5) g/dL Albumin/Globulin Ratio (1.2-2.2) Free T4 1.04 (0.76-1.46) ng/dL TSH, Ultra Sensitive (0.358-3.740) uIU/mL 03/29/21 Range/Units 19:23 WBC (4.5-11.0) K/uL RBC (3.30-5.50) M/uL Hgb (12.0-15.0) g/dL Hct (36.0-48.0) % MCV (80-98) fL MCH (27-31) pg MCHC (32-36) % Plt Count (150-400) K/uL Neut % (Auto) (36-66) % Lymph % (Auto) (24-44) % [place] % (Auto) (2-6) % Eos % (Auto) (2-4) % Baso % (Auto) (0-1) % PT (9.5-12.0) sec INR (0.80-1.20) APTT (27.0-36.0) sec Sodium 142 (140-148) mmol/L Potassium 3.9 (3.6-5.2) mmol/L Chloride 105 (100-108) mmol/L Carbon Dioxide 28 (21-32) mmol/L Anion Gap 8.8 (5.0-14.0) mmol/L BUN 22 H (7-18) mg/dL Creatinine 1.4 H (0.6-1.0) mg/dL Est Cr Clr Drug Dosing 26.95 mL/min Estimated GFR (MDRD) 36 L (>60) Glucose 104 (74-106) mg/dL Calcium 9.0 (8.5-10.1) mg/dL Total Bilirubin 0.5 (0.2-1.0) mg/dL AST 23 (15-37) U/L ALT 41 (12-78) U/L Alkaline Phosphatase 101 (46-116) U/L NT-Pro-B Natriuret Pep 192 (5-450) pg/mL Total Protein 7.1 (6.4-8.2) g/dL Albumin 3.6 (3.4-5.0) g/dL Globulin 3.5 (2.3-3.5) g/dL Albumin/Globulin Ratio 1.0 L (1.2-2.2) Free T4 (0.76-1.46) ng/dL TSH, Ultra Sensitive 4.071 H (0.358-3.740) uIU/mL - Re-Assessments/Exams Free Text/Narrative Re-Assessment/Exam: 03/29/21 21:44 I reviewed the patient's EKG demonstrating normal sinus rhythm at a rate of 77 bpm. She does have evidence for left atrial enlargement. Everything else appears to be normal. The patient had a portable 1 view chest x-ray which also appears to be normal. Labs were obtained showing a normal CBC, comprehensive metabolic panel except for a creatinine 1.4. Her TSH is elevated at 4.07 with a normal free T4 suggesting sick euthyroid. Patient's brain natruretic peptide is normal at 192. On exam, she has 1+ edema suggesting retention of fluid. She is in sinus rhythm but is having episodes of paroxysmal atrial flutter or fibrillation. She does saw her primary care provider who wanted to increase her diltiazem XR to 240 mg daily. She has been reluctant to do this because she does not understand the need for it. We spent 20 minutes going over her medications and how each medication works with her body. She had previously been on chlorthalidone, however, discontinued it because of hypokalemia. She has not been taking any water pill for the last 3 weeks contributing to her fluid retention and elevated blood pressure. She has agreed to increase her diltiazem XR to 240 mg daily. I reviewed her chart and saw that she had a previous reaction to hydrochlorothiazide so we will put her on low-dose Lasix 20 mg every morning. 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 I did discuss the case with Dr. Damico who would like to see her in follow-up. This was discussed with the patient. At this time, the patient is suitable for discharge home in satisfactory condition. Indications to return to the ED were discussed prior to discharge. Departure - Departure Time of Disposition: 21:48 Disposition: Home, Self-Care 01 Clinical Impression: Paroxysmal atrial flutter, Essential hypertension, Peripheral edema CKD (chronic kidney disease) stage 3, GFR 30-59 ml/min Qualifiers: Chronic kidney disease stage 3 subtype: stage 3a (GFR 45-59) Qualified Code(s): N18.31 - Chronic kidney disease, stage 3a Prescriptions: Furosemide [Lasix] 20 mg PO QAM #30 tab Metoprolol Tartrate 100 mg PO BID #60 tablet Referrals: Mario Alberto Finley, [employer] [Primary Care Provider] - Forms: ED Department Discharge Care Plan Goals: I would like you to increase your diltiazem XR to 240 mg daily as discussed in our cessation. We are also adding Lasix 20 mg every morning to get the extra fluid off. I had like you to weigh yourself once a day preferably when you get up in the morning at the same time to observe for any fluid retention. Please let your doctor know if you have more than an 8 pound weight gain over the period of a week to 2 which could indicate significant fluid retention. Dr. Damico would like to see you in follow-up within the next 1 to 2 weeks. I have also included a prescription for metoprolol tartrate 100 mg twice daily to replace your metoprolol succinate that you are currently on. Return to the emergency room for reevaluation should you develop a rapid heartbeat, lightheadedness, chest pain or shortness of breath, nausea or vomiting. It was a pleasure meeting with you. Sepsis Event Note (ED) - Evaluation Sepsis Screening Result: No Definite Risk - Focused Exam Vital Signs: Vital Signs Temp Pulse Resp BP Pulse Ox 03/29/21 21:27 13 187/93 H 95 03/29/21 21:10 73 14 169/87 H 98 03/29/21 19:04 36.4 C 79 20 185/83 H 95 03/29/21 18:57 36.4 C 79 20 185/83 H 95 - Problem List & Annotations (1) CKD (chronic kidney disease) stage 3, GFR 30-59 ml/min SNOMED Code(s): 575820954 Code(s): N18.30 - CHRONIC KIDNEY DISEASE, STAGE 3 UNSPECIFIED Status: Chronic Priority: Medium Current Visit: Yes Qualifiers: Chronic kidney disease stage 3 subtype: stage 3a (GFR 45-59) Qualified Code(s): N18.31 - Chronic kidney disease, stage 3a (2) Essential hypertension SNOMED Code(s): 48551300 Code(s): I10 - ESSENTIAL (PRIMARY) HYPERTENSION Status: Chronic Priority: High Current Visit: Yes (3) Paroxysmal atrial flutter SNOMED Code(s): 810393230 Code(s): I48.92 - UNSPECIFIED ATRIAL FLUTTER Status: Acute Priority: High Current Visit: Yes (4) Peripheral edema SNOMED Code(s): 103875866 Code(s): R60.9 - EDEMA, UNSPECIFIED Status: Acute Priority: High Current Visit: Yes - Problem List Review Problem List Initiated/Reviewed/Updated: Yes - My Orders Last 24 Hours: My Active Orders 03/29/21 18:58 EKG Documentation Completion [RC] ASDIRECTED Chest 1V Frontal [CR] Stat EKG 12 Lead [EK] Routine - Assessment/Plan Last 24 Hours: My Active Orders 03/29/21 18:58 EKG Documentation Completion [RC] ASDIRECTED Chest 1V Frontal [CR] Stat EKG 12 Lead [EK] Routine
[2021-03-29 21:11] VITALS: PULSE 73
[2021-03-29 21:49] VITALS: BP 168/72
--- NOTE | 2021-03-30 13:21 | CR ---
CHEST: Portable 03/29/2021 at 7:29 PM CLINICAL HISTORY:Atrial fibrillation COMPARISON:03/02/2021 FINDINGS: The heart size, pulmonary vascularity and hilar structures are normal. No infiltrate effusion or pneumothorax is seen. There is pleural plaque formation in the left upper hemithorax. There are streaky density in the lingula which is likely atelectasis or scarring. There are atherosclerotic changes in the aorta. IMPRESSION: No acute cardiopulmonary process.
== END 2021-03-29 22:00 | disposition home or self-care (01) ==
LOC: JP.ED 18:26
DX: I12.9 Hypertensive chronic kidney disease with stage 1 through stage 4 chronic kidney disease, or unspecified chronic kidney disease (principal); N18.31 Chronic kidney disease, stage 3a; I48.92 Unspecified atrial flutter; R60.0 Localized edema; Z79.899 Other long term (current) drug therapy
CPT/HCPCS: 36415; 71045; 71045-26; 80053; 83880; 84439; 84443; 85025; 85610; 85730; 93005; 93010; 99284; 99285-25

== ENCOUNTER 2021-10-06 13:44 | Emergency (ER) | payer MEDICARE ==
[2021-10-06] MEDS ORDERED: Nitroglycerin 0.4 MG Tab.SL SL ONE (15:39)
--- NOTE | 2021-10-06 15:42 | EDM.PDOC ---
ED HPI GENERAL MEDICAL PROBLEM - General Chief Complaint: Cardiovascular Problem Stated Complaint: HIGH BLOOD PRESSURE Time Seen by Provider: 10/06/21 15:31 Source of Information: Reports: Patient, RN Notes Reviewed History Limitations: Reports: No Limitations - History of Present Illness INITIAL COMMENTS - FREE TEXT/NARRATIVE: 80-year-old female presents emergency department day concern about blood pressure, she does bring in her blood pressure readings she does have a home cuff at. She is on 2 blood pressure medication metoprolol and hydrochlorothiazide. Blood pressure readings at home are in the systolic 110 range 5 however after Griselda he can start to see a climb in the blood pressure 1 4160 and now today in the 200s. When asked about salt intake she admits that she did have leftover ham at home and she has been eating that daily trying to get rid of the ham. 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 has 3 children. 1 Son , 1 Daughter, 1 Daughter age 6 months.) ED ROS GENERAL - Review of Systems Review Of Systems: See Below Constitutional: Reports: No Symptoms HEENT: Reports: No Symptoms Respiratory: Reports: No Symptoms Cardiovascular: Reports: Blood Pressure Problem GI/Abdominal: Reports: No Symptoms : Reports: No Symptoms (Oh) ED EXAM, GENERAL - Physical Exam Exam: See Below Exam Limited By: No Limitations General Appearance: Alert, WD/WN, No Apparent Distress Respiratory/Chest: No Respiratory Distress, Lungs Clear, Normal Breath Sounds, No Accessory Muscle Use, Chest Non-Tender Cardiovascular: Regular Rate, Rhythm, No Murmur Course - Vital Signs Last Recorded V/S: Last Vital Signs Temp 97.6 F 10/06/21 15:49 Pulse 83 10/06/21 16:18 Resp 16 10/06/21 15:49 BP 146/83 H 10/06/21 16:18 Pulse Ox 91 L 10/06/21 16:18 - Orders/Labs/Meds Meds: Medications Discontinued Medications Generic Name Dose Route Start Last Admin Trade Name Kim PRN Reason Stop Dose Admin Nitroglycerin 0.4 mg 10/06/21 15:39 10/06/21 16:10 Nitroglycerin 0.4 Mg Tab.Sl SL 10/06/21 15:40 0.4 mg ONETIME ONE Administration Departure - Departure Time of Disposition: 16:38 Disposition: Home, Self-Care 01 Condition: Fair Clinical Impression: Hypertensive urgency Instructions: Hypertension, Adult, [id number] Referrals: Mario Alberto Finley NP [Primary Care Provider] - Forms: ED Department Discharge Additional Instructions: Continue to push free water intake, reduce your salt intake continue with your regular blood pressure medications follow-up with your primary care in the next 2 to 3 days call return to the emergency department with worsening of symptoms Sepsis Event Note (ED) - Focused Exam Vital Signs: Vital Signs Temp Pulse Resp BP BP Pulse Ox 10/06/21 16:18 83 146/83 H 91 L 10/06/21 16:10 194/85 H 10/06/21 15:49 97.6 F 75 16 208/95 H 96 10/06/21 15:00 97.6 F 75 16 208/95 H 96 - Assessment/Plan Plan: Assessment Acuity = acute Site and laterality = hypertensive urgency Etiology = high related to salt intake Manifestations = none Location of injury = Home Lab values = none Plan Blood pressure did come down sublingual nitro she is going to reduce the salt intake plan is to continue with her regular blood pressure medications increase her fluid intake follow-up primary care 2 to 3 days for reevaluation This note was dictated using dragon voice recognition software please call with any questions on syntax or grammar.
[2021-10-06 16:19] VITALS: BP 146/83; PULSE 83
== END 2021-10-06 16:52 | disposition home or self-care (01) ==
LOC: JP.ED 13:44
DX: I16.0 Hypertensive urgency (principal); Z79.899 Other long term (current) drug therapy
CPT/HCPCS: 99283; A9270

== ENCOUNTER 2024-08-07 11:41 | Emergency (ER) | payer MEDICARE ==
[2024-08-07] MEDS ORDERED: Sodium Chloride 0.9% 10 ML Syringe FLUSH PRN (11:53)
[2024-08-07 12:03] LABS: BASOPHILS PERCENT AUTO 1.4 % (0.1-1.3); EOSINOPHILS ABSOLUTE AUTO 0.08 K/uL (0.00-0.40); EOSINOPHILS PERCENT AUTO 1.2 % (0.0-5.4); HEMATOCRIT 47.5 % (34.3-46.0); IMMATURE GRAN PERCENT AUTO 0.1 % (0.0-0.7); LYMPHOCYTES ABSOLUTE AUTO 1.19 K/uL (0.8-3.3); LYMPHOCYTES PERCENT AUTO 17.2 % (11.4-47.7); MEAN CORPUSCULAR HEMOGLOBIN 30.2 pg (31.6-35.5); MEAN CORPUSCULAR HGB CONC 33.7 g/dL (31.6-35.5); MEAN CORPUSCULAR VOLUME 89.6 fL (81.4-99.0); MONOCYTES ABSOLUTE AUTO 0.36 K/uL (0.20-0.90); MONOCYTES PERCENT AUTO 5.2 % (3.3-12.6); NEUTROPHILS ABSOLUTE AUTO 5.16 K/uL (1.0-7.6); NEUTROPHILS PERCENT AUTO 74.9 % (40.0-78.1); PLATELET COUNT,PLT 307 K/uL (130-375); WHITE BLOOD CELL COUNT,WBC 6.9 K/uL (3.2-11.0)
[2024-08-07] MEDS: Diltiazem 25 MG/5 ML SDV IVPUSH ONE (12:03)
[2024-08-07] MEDS: Sodium Chloride 0.9% 500 ML IV ONE ×2 (12:04→12:53)
[2024-08-07 12:08] LABS: IMMATURE GRAN ABSOLUTE AUTO 0.01 K/uL (0.00-0.23)
[2024-08-07 12:28] LABS: CALCIUM 10.6 mg/dL (8.5-10.1); CREATININE 1.7 mg/dL (0.6-1.0); EST CRCL DRUG DOSING (CG) 20.18 mL/min; POTASSIUM,K 3.2 mmol/L (3.6-5.2); TROPONIN I HIGH SENSITIVITY 9.2 pg/mL (<=60.3)
[2024-08-07 12:29] LABS: ANION GAP 13.2 mmol/L (5.0-14.0)
[2024-08-07] MEDS: Propofol 200 MG/20 ML SDV IVPUSH ONE (13:18)
[2024-08-07 14:22] VITALS: BP 133/66; PULSE 60
== END 2024-08-07 14:22 | disposition home or self-care (01) ==
LOC: JP.ED 11:41
DX: I48.0 Paroxysmal atrial fibrillation (principal); I12.9 Hypertensive chronic kidney disease with stage 1 through stage 4 chronic kidney disease, or unspecified chronic kidney disease; N18.9 Chronic kidney disease, unspecified; Z90.710 Acquired absence of both cervix and uterus; Z79.899 Other long term (current) drug therapy
CPT/HCPCS: 36415; 80048; 84443; 84484; 85025; 92960; 93005; 93010; 96361; 96374; 99284; 99285-25; J2704; J3490; J7040